=== PATIENT | male | born 1960 | race Caucasian/White ===

== ENCOUNTER 2017-08-04 09:33 | Emergency (ER) | payer MEDICAID ==
[2017-08-04] MEDS ORDERED: ONDANSETRON 4 MG/2 ML VIAL IVP ONE ×2 (09:43→10:51)
[2017-08-04] MEDS ORDERED: NS 1,000 ML IV ONE (09:47)
[2017-08-04 09:53] LABS: PLATELET COUNT 182 10^3/uL (150-400)
--- NOTE | 2017-08-04 10:02 | EDPHY ---
HPI/HX/ROS/PE/MDM Narrative: CHIEF COMPLAINT: Abdominal pain, vomiting HPI: The patient is a 57-year-old male with a history of alcoholism, history of pancreatitis and ulcerative colitis. He states he has been in his usual state of health until this morning when he awoke with epigastric pain and vomiting. He states the symptoms are the same as when he had acute pancreatitis approximately 2 years ago and was seen at [facility] [place]. He denies blood in emesis or stool and denies dark tarry stools. He denies fevers. He denies trauma. REVIEW OF SYSTEMS: Aside from elements discussed in the HPI, a comprehensive 10-point review of systems was reviewed and is negative. PMH: Includes history of acute pancreatitis, ulcerative colitis and alcoholism. SOCIAL HISTORY: Admits to daily heavy alcohol use. Denies recent drug abuse. PHYSICAL EXAM: General:Patient is alert, in no acute distress. ENT:Eyes are normal to inspection. ENT inspection normal. Neck: Normal inspection. Full range of motion. Respiratory:No respiratory distress. Breath sounds normal bilaterally. Cardiovascular: Regular rate and rhythm. Strong peripheral pulses. Normal cap refill. Abdomen: Moderate to severe epigastric tenderness is present. No peritoneal signs. Remainder of abdominal exam normal. Back: Normal to inspection. No tenderness to palpation. Skin: Normal color. No rash. Warm and dry. Extremities: Normal appearance. Full range of motion. Neuro: Oriented x3. Normal motor function. Normal sensory function. MDM: This patient presents with abdominal pain and vomiting consistent with acute pancreatitis and this is confirmed by elevated lipase in lack of other findings. The patient was initially treated with Toradol but this did not provide any significant pain relief. I had extensive discussion with the patient to declines admission to the hospital for pancreatitis. We agreed on a plan to provide him with 1 dose of IV Dilaudid here and a prescription for Zofran to go home with. Patient now tolerating PO without difficulty and states pain much improved. He continues to decline admission. He understands that pancreatitis carries significant health risk it may be life-threatening. We discussed strict return precautions. Of note, the patient apparently asked if I would provide him with "a handful of Vicodin" - this requested was politely denied. - Data Points Imaging Results: Imaging Impressions Abdomen X-Ray 08/04/17 10:21 Impression: 1. Constipation. 2. No bowel obstruction. Imaging: Discussed imaging studies w/ leaf tier Radiologist, I viewed and interpreted images myself Laboratory Results: Laboratory Results 08/04/17 09:45 08/04/17 09:45 08/04/17 08/04/17 09:45 09:45 WBC 9.84 10^3/uL H 10^3/uL (3.80-9.50) RBC 5.49 10^6/uL 10^6/uL (4.40-6.38) Hgb 18.9 g/dL H g/dL (13.7-17.5) Hct 53.5 % H % (40.0-51.0) MCV 97.4 fL fL (81.5-99.8) MCH 34.4 pg H pg (27.9-34.1) MCHC 35.3 g/dL g/dL (32.4-36.7) RDW 12.7 % % (11.5-15.2) Plt Count 182 10^3/uL 10^3/uL (150-400) MPV 9.9 fL fL (8.7-11.7) Neut % (Auto) 75.9 % H % (39.3-74.2) Lymph % (Auto) 12.5 % L % (15.0-45.0) [place] % (Auto) 6.6 % % (4.5-13.0) Eos % (Auto) 3.4 % % (0.6-7.6) Baso % (Auto) 1.0 % % (0.3-1.7) Nucleat RBC Rel Count 0.0 % % (0.0-0.2) Absolute Neuts (auto) 7.47 10^3/uL H 10^3/uL (1.70-6.50) Absolute Lymphs (auto) 1.23 10^3/uL 10^3/uL (1.00-3.00) Absolute Monos (auto) 0.65 10^3/uL 10^3/uL (0.30-0.80) Absolute Eos (auto) 0.33 10^3/uL 10^3/uL (0.03-0.40) Absolute Basos (auto) 0.10 10^3/uL 10^3/uL (0.02-0.10) Absolute Nucleated RBC 0.00 10^3/uL 10^3/uL (0-0.01) Immature Gran % 0.6 % % (0.0-1.1) Immature Gran # 0.06 10^3/uL 10^3/uL (0.00-0.10) Sodium 141 mEq/L mEq/L (135-145) Potassium 3.9 mEq/L mEq/L (3.5-5.2) Chloride 102 mEq/L mEq/L (97-110) Carbon Dioxide 31 mEq/l mEq/l (22-31) Anion Gap 8 mEq/L mEq/L (8-16) BUN 10 mg/dL mg/dL (7-23) Creatinine 0.6 mg/dL L mg/dL (0.7-1.3) Estimated GFR > 60 Glucose 121 mg/dL H mg/dL (70-100) Calcium 9.6 mg/dL mg/dL (8.5-10.4) Total Bilirubin 1.1 mg/dL mg/dL (0.1-1.4) AST 127 IU/L H IU/L (17-59) ALT 101 IU/L H IU/L (21-72) Alkaline Phosphatase 147 IU/L H IU/L (38-126) Total Protein 7.8 g/dL g/dL (6.3-8.2) Albumin 4.0 g/dL g/dL (3.5-5.0) Lipase 1265 IU/L H IU/L (23-300) Medications Given: Discontinued Medications Hydromorphone HCl (Dilaudid) 1 mg IVP EDNOW ONE Stop: 08/04/17 10:21 Last Admin: 08/04/17 10:26 Dose: 1 mg Sodium Chloride (Ns) 1,000 mls @ 0 mls/hr IV EDNOW ONE; Wide Open PRN Reason: Protocol Stop: 08/04/17 09:48 Last Admin: 08/04/17 10:02 Dose: 1,000 mls Ketorolac Tromethamine (Toradol) 15 mg IVP EDNOW ONE Stop: 08/04/17 10:06 Last Admin: 08/04/17 10:08 Dose: 15 mg Ondansetron HCl (Zofran) 4 mg IVP EDNOW ONE Stop: 08/04/17 09:44 Last Admin: 08/04/17 09:55 Dose: 4 mg Ondansetron HCl (Zofran) 4 mg IVP EDNOW ONE Stop: 08/04/17 10:52 Last Admin: 08/04/17 10:54 Dose: 4 mg General Time Seen by Provider: 08/04/17 09:39 Initial Vital Signs: Initial Vital Signs Temperature (C) 36.4 C 08/04/17 09:37 Heart Rate 83 08/04/17 09:37 Respiratory Rate 18 08/04/17 09:37 Blood Pressure 135/101 H 08/04/17 09:37 O2 Sat (%) 96 08/04/17 09:37 O2 Delivery Mode Room Air Allergies/Adverse Reactions: Sulfa (Sulfonamide Antibiotics) Allergy (Severe, Verified 08/04/17 09:37) Vomiting Home Medications: Medication Instructions Recorded Ondansetron Odt [Zofran Odt] 4 mg PO Q4PRN PRN #10 tab 08/04/17 Departure - Departure Disposition: Home, Routine, Self-Care Clinical Impression: Pancreatitis, alcoholic, acute Condition: Good Instructions: Ondansetron (By mouth), Pancreatitis (ED) Additional Instructions: Please seek help with alcohol cessation. Return to the ED for fever, severe pain, vomiting blood or blood in stool. Follow-up with your primary doctor within 72 hours. Referrals: NONE *PRIMARY CARE P,. [Primary Care Provider] - As per Instructions Prescriptions: Ondansetron Odt [Zofran Odt] 4 mg PO Q4PRN PRN #10 tab PRN Reason: Nausea
[2017-08-04] MEDS ORDERED: KETOROLAC 30 MG/1 ML SDV IVP ONE (10:05)
[2017-08-04] MEDS ORDERED: HYDROmorphONE/DILAUDID 2 MG/ML INJ IVP ONE (10:20)
[2017-08-04 12:14] VITALS: BP 145/100
== END 2017-08-04 11:53 | disposition home or self-care (01) ==
LOC: CED 09:33
DX: K85.20 Alcohol induced acute pancreatitis without necrosis or infection (principal); E86.9 Volume depletion, unspecified
CPT/HCPCS: 74018-PO; 80053-PO; 83690-PO; 85025-PO; 96374; J1170; J1885; J2405

== ENCOUNTER 2017-08-07 10:11 | Emergency (ER) | payer MEDICAID ==
[2017-08-07] MEDS ORDERED: NS 2,000 ML IV ONE (10:25)
[2017-08-07] MEDS ORDERED: KETOROLAC 30 MG/1 ML SDV IVP ONE (10:56)
--- NOTE | 2017-08-07 11:02 | EDPHY ---
H & P Stated Complaint: c/o lower abd pain with bloating-last normal BM Wed-took lax and enima Sun Time Seen by Provider: 08/07/17 10:22 HPI/ROS: This patient returns with abdominal pain after being diagnosed with acute pancreatitis likely related to alcohol intake 3 days ago here at [facility] Department with a lipase at that time around 1200. He declined admission and reports that he had 1 further episode of vomiting 48 hr prior to return. He reports that his pain is currently 4/10 intensity in achy in nature with occasional pinching sharper pain upper belly more than lower belly. He reports that he has associated feeling of mild abdominal distension. He also reports that he is unable to have a good bowel movement for the past 6 days. He tried a saline enema at home 48 hr prior to this visit with minimal stool output. He also complains of a 10 lb weight loss over the past 10 days or so. Usually weighs 130 and grade 1 19 this morning. He reports anorexia but is still tolerating some p.o. Intake. His abdominal pain worsens with movement. No other exacerbating factors. He does report some radiation to his back with the pain. ROS: Constitutional: No fevers. No other generalized complaints other than the weight loss noted above HEENT: No URI symptoms or other complaints new line pulmonary: No shortness of breath or cough. Cardiovascular: He reports chest pain last night 3/10 intensity for about 90 min radiating to his left shoulder from the substernal location without clear exacerbating factors achy in nature. He fell sleep and awakened with no chest pain this morning. He denies any lightheadedness. No lower extremity swelling associated with this. GI: As per HPI. He denies any dark tarry stools. No hematemesis. : He reports mild testicular pain bilaterally over the past 24 hr that is achy in nature. He has noticed any associated swelling. He reports darker urine than usual and less urine output than usual over the same period of time. He denies any dysuria. No urethral discharge. No STD risk factors at this time. Integumentary: No diaphoresis or pallor. Neuro: No focal complaints. No headache. Complete review of symptoms otherwise negative. Source: Patient Exam Limitations: No limitations - Personal History Current Tetanus Diphtheria and Acellular Pertussis (TDAP): Yes - Medical/Surgical History PMH: Alcohol abuse Acute pancreatitis admit [facility] for brief admission April 2015. He has never had lower endoscopy. No history of abdominal surgeries. Hx Asthma: No Hx Chronic Respiratory Disease: No Hx Diabetes: No Hx Cardiac Disease: No Hx Renal Disease: No Hx Cirrhosis: No Hx Alcoholism: No Hx HIV/AIDS: No Hx Splenectomy or Spleen Trauma: No Other PMH: Med hx-ulcerative colitis and pancreatitis. Surg-oral - Family History Significant Family History: No pertinent family hx - Social History Smoking Status: Heavy smoker Alcohol Use: Heavy (Had to drinking daily but has had less alcohol over the past week due to symptoms. He reports drinking"a small bottle of alcohol yesterday. None yet today.) Drug Use: Marijuana (He reports that he typically smokes marijuana once a week or so. No other drug use. He cares for his elderly parents at home.) - Physical Exam Exam: General Appearance: Cachectic appearing 57-year-old male Alert, no distress. Eyes: Pupils equal and round no pallor or injection. ENT, Mouth: Mucous membranes moist. Respiratory: There are no retractions, lungs are clear to auscultation. Cardiovascular: Regular rate and rhythm. No murmur gallop or rub Gastrointestinal: Normoactive to hyperactive bowel sounds, soft with moderate upper belly tenderness and mild lower belly tenderness. No guarding or rebound. Back: Mild left CVA tenderness. No midline tenderness : Circumcised penis with no urethral discharge or lesions. He has mild left epididymal tenderness. No testicular tenderness or right-sided epididymal tenderness. No swelling. No overt evidence for inguinal hernia. Rectal exam: No external hemorrhoids. Stool is light brown. No prostate swelling. No stool impaction. (heme neg on occult testing) Neurological: GCS 15 with no focal deficits. No tremor. Skin: Warm and dry, no rashes. Musculoskeletal: Neck is supple nontender. Extremities are symmetrical, full range of motion. Psychiatric: Mood and affect are normal at this time. DIFFERENTIAL DIAGNOSIS: After history and physical exam differential diagnosis was considered for acute pancreatitis, bowel obstruction, colon cancer, myocardial ischemic disease, GERD, epididymitis, pyelonephritis, constipation, hepatitis Constitutional: Initial Vital Signs Temperature (C) 36.6 C 08/07/17 10:22 Heart Rate 87 08/07/17 10:22 Respiratory Rate 18 08/07/17 10:22 Blood Pressure 135/86 H 08/07/17 10:22 O2 Sat (%) 96 08/07/17 10:22 O2 Delivery Mode Room Air Allergies/Adverse Reactions: Sulfa (Sulfonamide Antibiotics) Allergy (Severe, Verified 08/04/17 09:37) Vomiting Home Medications: Medication Instructions Recorded Ondansetron Odt [Zofran Odt] 4 mg PO Q4PRN PRN #10 tab 08/04/17 Docusate Sodium [Colace 100 MG (*)] 100 mg PO BID PRN #20 cap 08/07/17 Medical Decision Making - Diagnostics EKG Interpretation: 12 lead EKG performed at 03 18 reveals sinus rhythm at 73 Intervals: Normal throughout [place]: Normal throughout. ST segments: Normal throughout Overall assessment normal EKG without evidence of acute ischemia by my interpretation ED Course/Re-evaluation: IV normal saline bolus X 2 L Toradol 30 mg IV With resolution of the patient's pain. Studies: CBC reveals elevated hematocrit consistent with hemoconcentration from dehydration. Leukocytosis from prior visit has resolved today with a white count of 7. Comp metabolic panel reveals resolution of mildly elevated LFTs from prior visit. While as auto fossa remains slightly elevated it has diminished compared to prior study on August 04. His lipase is also elevated but improved down from over 1200 to mid 700 currently. Hemoccult stool test was negative for blood. Urinalysis: Ketones otherwise negative. Discussion: This patient with history of alcohol pancreatitis that declined admission on the has improved in terms of his pancreatitis-no vomiting for 48 hr, reduced upper belly pain and improved lab numbers. Review of the previous visit on the reveals that he had severe epigastric tenderness without time he now has minimal epigastric tenderness. He seems to complain more today of his constipation. Rectal vault is empty with no fecal impaction. Is good bowel sounds and soft belly. Not think he has obstruction. While at some chest pain last night and is a smoker, today's EKG is normal without any ischemic findings knees had no chest pain today. Do not think he has active cardiac ischemia. Urinalysis was benign other than mild dehydration. I offered the patient admission for lingering pancreatitis but he declined. I encouraged the patient to stop drinking proceed with his bland diet and increase fluid intake. I also explained that he is due for lower endoscopy given his age. Asked him to establish care with a primary care physician and provided the on-call outpatient primary care physician to arrange follow-up appointment. I also outlined a constipation bowel regimen some detail on his discharge instructions. He understands need to return emergency department should he developed worsening symptoms despite the treatment plan. - Data Points Laboratory Results: Laboratory Results 08/07/17 11:09 08/07/17 11:09 08/07/17 08/07/17 08/07/17 12:05 11:09 11:09 WBC 7.34 10^3/uL 10^3/uL (3.80-9.50) RBC 5.05 10^6/uL 10^6/uL (4.40-6.38) Hgb 17.4 g/dL g/dL (13.7-17.5) Hct 48.9 % % (40.0-51.0) MCV 96.8 fL fL (81.5-99.8) MCH 34.5 pg H pg (27.9-34.1) MCHC 35.6 g/dL g/dL (32.4-36.7) RDW 12.4 % % (11.5-15.2) Plt Count 171 10^3/uL 10^3/uL (150-400) MPV 10.5 fL fL (8.7-11.7) Neut % (Auto) 64.4 % % (39.3-74.2) Lymph % (Auto) 15.4 % % (15.0-45.0) [place] % (Auto) 11.9 % % (4.5-13.0) Eos % (Auto) 6.4 % % (0.6-7.6) Baso % (Auto) 1.2 % % (0.3-1.7) Nucleat RBC Rel Count 0.0 % % (0.0-0.2) Absolute Neuts (auto) 4.73 10^3/uL 10^3/uL (1.70-6.50) Absolute Lymphs (auto) 1.13 10^3/uL 10^3/uL (1.00-3.00) Absolute Monos (auto) 0.87 10^3/uL H 10^3/uL (0.30-0.80) Absolute Eos (auto) 0.47 10^3/uL H 10^3/uL (0.03-0.40) Absolute Basos (auto) 0.09 10^3/uL 10^3/uL (0.02-0.10) Absolute Nucleated RBC 0.00 10^3/uL 10^3/uL (0-0.01) Immature Gran % 0.7 % % (0.0-1.1) Immature Gran # 0.05 10^3/uL 10^3/uL (0.00-0.10) Sodium 135 mEq/L mEq/L (135-145) Potassium 4.2 mEq/L mEq/L (3.5-5.2) Chloride 99 mEq/L mEq/L (97-110) Carbon Dioxide 29 mEq/l mEq/l (22-31) Anion Gap 7 mEq/L L mEq/L (8-16) BUN 16 mg/dL mg/dL (7-23) Creatinine 0.6 mg/dL L mg/dL (0.7-1.3) Estimated GFR > 60 Glucose 89 mg/dL mg/dL (70-100) Calcium 9.2 mg/dL mg/dL (8.5-10.4) Total Bilirubin 1.4 mg/dL mg/dL (0.1-1.4) AST 59 IU/L IU/L (17-59) ALT 55 IU/L IU/L (21-72) Alkaline Phosphatase 132 IU/L H IU/L (38-126) Total Protein 6.8 g/dL g/dL (6.3-8.2) Albumin 3.4 g/dL L g/dL (3.5-5.0) Lipase 749 IU/L H IU/L (23-300) Urine Color YELLOW Urine Appearance HAZY Urine pH 8.0 H (5.0-7.5) Ur Specific [place] 1.015 (1.002-1.030) Urine Protein NEGATIVE (NEGATIVE) Urine Ketones 1+ H (NEGATIVE) Urine Blood NEGATIVE (NEGATIVE) Urine Nitrate NEGATIVE (NEGATIVE) Urine Bilirubin NEGATIVE (NEGATIVE) Urine Urobilinogen 2.0 EU H EU (0.2-1.0) Ur Leukocyte Esterase NEGATIVE (NEGATIVE) Urine Glucose NEGATIVE (NEGATIVE) Stool Occult Bld Scrn 08/07/17 10:50 WBC RBC Hgb Hct MCV MCH MCHC RDW Plt Count MPV Neut % (Auto) Lymph % (Auto) [place] % (Auto) Eos % (Auto) Baso % (Auto) Nucleat RBC Rel Count Absolute Neuts (auto) Absolute Lymphs (auto) Absolute Monos (auto) Absolute Eos (auto) Absolute Basos (auto) Absolute Nucleated RBC Immature Gran % Immature Gran # Sodium Potassium Chloride Carbon Dioxide Anion Gap BUN Creatinine Estimated GFR Glucose Calcium Total Bilirubin AST ALT Alkaline Phosphatase Total Protein Albumin Lipase Urine Color Urine Appearance Urine pH Ur Specific [place] Urine Protein Urine Ketones Urine Blood Urine Nitrate Urine Bilirubin Urine Urobilinogen Ur Leukocyte Esterase Urine Glucose Stool Occult Bld Scrn NEGATIVE (NEGATIVE) Medications Given: Discontinued Medications Sodium Chloride (Ns) 2,000 mls @ 0 mls/hr IV EDNOW ONE; Wide Open PRN Reason: Protocol Stop: 08/07/17 10:26 Last Admin: 08/07/17 11:12 Dose: 2,000 mls Ketorolac Tromethamine (Toradol) 30 mg IVP EDNOW ONE Stop: 08/07/17 10:57 Last Admin: 08/07/17 11:13 Dose: 30 mg Departure - Departure Disposition: Home, Routine, Self-Care Clinical Impression: Pancreatitis Qualifiers: Chronicity: acute Pancreatitis type: alcohol induced Acute pancreatitis complication: unspecified Qualified Code(s): K85.20 - Alcohol induced acute pancreatitis without necrosis or infection Constipation Qualifiers: Constipation type: unspecified constipation type Qualified Code(s): K59.00 - Constipation, unspecified Condition: Good Instructions: Pancreatitis (ED), Constipation (ED) Additional Instructions: Diagnoses: 1. Pancreatitis 2. Constipation Plan: Drink plenty fluids Stop alcohol Ibuprofen Tylenol for pain as needed Colace stool softener-2 day Metamucil in addition - 20 g a day Milk a magnesia-30 mL a day MiraLax 17 g 2 times a day [place] oil 1-2 tbsp a day Enemas as needed Consider tapering off of your opiate narcotic. Above plan until the having 1 more bowel movements today. If you start having loose stools then dropped 1 of these therapies that time starting from the bottom going up for the top the list. Call your primary care physician to arrange follow-up appointment for further evaluation Return for any significant worsening despite the treatment plan Referrals: NONE *PRIMARY CARE P,. [Primary Care Provider] - As per Instructions Cricket Whiteside DO [Doctor of Osteopathy] - As per Instructions Prescriptions: Docusate Sodium [Colace 100 MG (*)] 100 mg PO BID PRN #20 cap PRN Reason: Constipation
[2017-08-07 11:16] LABS: PLATELET COUNT 171 10^3/uL (150-400)
--- NOTE | 2017-08-07 11:21 | CPEKG ---
Heart Rate: 73 RR Interval: 822 P-R Interval: 160 QRSD Interval: 76 QT Interval: 388 QTC Interval: 428 P [place]: 76 QRS [place]: 44 T Wave [place]: 49 EKG Severity - OTHERWISE NORMAL ECG - EKG Impression: SINUS RHYTHM EKG Impression: LOW VOLTAGE IN FRONTAL LEADS Electronically Signed By: Gavin Andrade 07-Aug-2017 11:21:55
[2017-08-07 12:58] VITALS: BP 135/62
== END 2017-08-07 12:55 | disposition home or self-care (01) ==
LOC: CED 10:11
DX: K85.20 Alcohol induced acute pancreatitis without necrosis or infection (principal); K59.00 Constipation, unspecified; E86.9 Volume depletion, unspecified; F17.200 Nicotine dependence, unspecified, uncomplicated
CPT/HCPCS: 80053-PO; 81003-PO; 82270-PO; 83690-PO; 85025-PO; 96374; J1885

== ENCOUNTER 2018-06-26 12:22 | Emergency (ER) | payer MEDICAID ==
[2018-06-26 13:01] VITALS: BP 135/89
--- NOTE | 2018-06-26 13:28 | EDPHY ---
H & P Stated Complaint: painful rash Time Seen by Provider: 06/26/18 13:18 HPI/ROS: CHIEF COMPLAINT: Rash since April HISTORY OF PRESENT ILLNESS: The patient is a 58-year-old man who is complaining of a pruritic rash that started on his right forearm in April and has spread to his back in both shoulder blade areas as well as his lower back as well as his thigh as well as his scalp and no his left arm. He states that it is the migrate. No fevers. No mucosal involvement. No urinary complaints. Today he went to the pharmacist to ask for cream and they recommended that he come to the ER. Severity: Moderate Modifying factors: Continuous no improvement with lotion REVIEW OF SYSTEMS: Constitutional: denies: chills, fever, recent illness, recent injury EENTM: denies: blurred vision, double vision, nose congestion Respiratory: denies: cough, shortness of breath Cardiac: denies: chest pain, irregular heart rate, lightheadedness, palpitations Gastrointestinal/Abdominal: denies: abdominal pain, diarrhea, nausea, vomiting, blood streaked stools Genitourinary: denies: dysuria, frequency, hematuria, pain Musculoskeletal: denies: joint pain, muscle pain Skin: See above Neurological: denies: headache, numbness, paresthesia, tingling, dizziness, weakness Hematologic/Lymphatic: denies: blood clots, easy bleeding, easy bruising Immunologic/allergic: denies: HIV/AIDS, transplant 10 systems reviewed and negative except as noted EXAM: GENERAL: Well-appearing, well-nourished and in no acute distress. HEAD: Atraumatic, normocephalic. EYES: Pupils equal round and reactive to light, extraocular movements intact, sclera anicteric, conjunctiva are normal. ENT: TMs normal, nares patent, oropharynx clear without exudates. Moist mucous membranes. NECK: Normal range of motion, supple without lymphadenopathy or JVD. LUNGS: Breath sounds clear to auscultation bilaterally and equal. No wheezes rales or rhonchi. HEART: Regular rate and rhythm without murmurs, rubs or gallops. ABDOMEN: Soft, nontender, normoactive bowel sounds. No guarding, no rebound. No masses appreciated. BACK: No CVA tenderness, no spinal tenderness, step-offs or deformities EXTREMITIES: Normal range of motion, no pitting or edema. No clubbing or cyanosis. NEUROLOGICAL: Cranial nerves II through XII grossly intact. Normal speech, normal gait. 5/5 strength, normal movement in all extremities, normal sensation , normal reflexes PSYCH: Normal mood, normal affect. SKIN: Patient has excoriations almost anywhere that he can reach. He has linear slightly elevated P ink lines the consistent with burrows. No visible black dots in skin or here. No ulcerations. Excessive skin excoriation and scratching and small amount of bleeding. Some crusting. The skin is spared areas that he cannot reach. Source: Patient Exam Limitations: No limitations - Medical/Surgical History Hx Asthma: No Hx Chronic Respiratory Disease: No Hx Diabetes: No Hx Cardiac Disease: No Hx Renal Disease: No Hx Cirrhosis: No Hx Alcoholism: No Hx HIV/AIDS: No Hx Splenectomy or Spleen Trauma: No Other PMH: Med hx-ulcerative colitis and pancreatitis. Surg-oral - Family History Significant Family History: No pertinent family hx - Social History Smoking Status: Heavy smoker Alcohol Use: None Constitutional: Initial Vital Signs Temperature (C) 36.6 C 06/26/18 12:58 Heart Rate 96 06/26/18 12:58 Respiratory Rate 18 06/26/18 12:58 Blood Pressure 135/89 H 06/26/18 12:58 O2 Sat (%) 92 06/26/18 12:58 O2 Delivery Mode Room Air Allergies/Adverse Reactions: Sulfa (Sulfonamide Antibiotics) Allergy (Severe, Verified 08/04/17 09:37) Vomiting Home Medications: Medication Instructions Recorded Ivermectin 3 mg PO ONCE #2 tablet 06/26/18 predniSONE 60 mg PO DAILY #15 tab 06/26/18 Medical Decision Making ED Course/Re-evaluation: 1:30 p.m. The patient's exam and symptoms are consistent with scabies or possibly lice. Possibly bed bugs. I will treat him with prednisone and Ivermectin. He will follow up with his primary if he is not improving. Discussed indications for returning here. Differential Diagnosis: Partial list of the Differential diagnosis considered include but were not limited to; scabies, lice, bedbugs and although unlikely based on the history and physical exam, I also considered contact dermatitis, psoriasis, eczema, erythema migrans. I discussed these differential diagnoses and the plan with the patient as well as the usual and expected course. The patient understands that the diagnosis is provisional and that in medicine we are not always correct and that further workup is often warranted. Usual and customary warnings were given. All of the patient's questions were answered. The patient was instructed to return to the emergency department should the symptoms at all worsen or return, otherwise to followup with the physician as we discussed. Departure - Departure Disposition: Home, Routine, Self-Care Clinical Impression: Scabies infestation Condition: Fair Instructions: Scabies (ED) Referrals: [facility],. [Clinic] - As per Instructions NONE *PRIMARY CARE P,. [Primary Care Provider] - 5-7 days, if not improved Prescriptions: Ivermectin 3 mg PO ONCE #2 tablet predniSONE 60 mg PO DAILY #15 tab
== END 2018-06-26 13:44 | disposition home or self-care (01) ==
LOC: CED 12:22
DX: B86 Scabies (principal)
CPT/HCPCS: 99284-ER